=== PATIENT | male | born 1995 | race Hispanic/Latino ===

== ENCOUNTER 2019-09-02 03:27 | Emergency (ER) | payer BC ==
[2019-09-02] MEDS ORDERED: DiphenhydrAMINE HCL 50 MG/ML VIAL ONE (04:44)
[2019-09-02] MEDS ORDERED: FAMOTIDINE 20MG TAB 20 MG TAB ONE (04:44)
[2019-09-02] MEDS ORDERED: PREDNISONE 20 MG TABLET ONE (04:45)
[2019-09-02] MEDS ORDERED: ALBUTEROL SULFATE 0.083% 2.5 MG/3 ML INH IH ONE (04:47)
[2019-09-02] MEDS ORDERED: SODIUM CHLORIDE 0.9% 1000ML 1,000 ML IV ONE (05:55)
== END 2019-09-02 06:24 | disposition home or self-care (01) ==
LOC: EDH 03:27
DX: T78.49XA Other allergy, initial encounter (principal); R22.0 Localized swelling, mass and lump, head; X58.XXXA Exposure to other specified factors, initial encounter
CPT/HCPCS: 94640; 96374; 99284; J1200; J7030